=== PATIENT | male | born 1985 | race Caucasian/White ===

== ENCOUNTER 2016-07-02 12:50 | Emergency (ER) | payer OTHER ==
[~2016-07-02] VITALS: Ht 162.6 cm; Wt 57.4 kg
[2016-07-02 12:55] VITALS: Ht 162.6 cm; Wt 57.4 kg
--- NOTE | 2016-07-02 15:26 | RADRPT ---
PROCEDURE: XR left wrist. CLINICAL INDICATION: Injury TECHNIQUE: Three views are available for review. COMPARISON: No prior studies are available for comparison. FINDINGS: There is an acute vertical nondisplaced intra-articular fracture involving the anterior distal radiu s. The osseous structures are otherwise normal in mineralization, architecture and alignment. No osseo us lesions are identified. The joints are unremarkable. There is mild soft tissue swelling. IMPRESSION: Acute vertical nondisplaced intra-articular fracture involving the anterior distal radius RPTAT: HGDB .Loy Pelaez MD, MD Date Time Electronically viewed and signed by .Loy Pelaez MD, on 07/02/2016 15:25 .B/
--- NOTE | 2016-07-02 15:27 | RADRPT ---
PROCEDURE: XR left forearm. CLINICAL INDICATION: Injury TECHNIQUE: AP and lateral views of the forearm were obtained. COMPARISON: No prior studies are available for comparison. FINDINGS: There is normal mineralization. There is an acute vertical intra-articular nondisplaced fracture in volving the anterior aspect of the distal radius. The joints are unremarkable. The soft tissues are unremarkable. IMPRESSION: Acute nondisplaced vertical intra-articular fracture involving the anterior aspect of the distal rad ius RPTAT: HGDB .Loy Pelaez MD, Date Time Electronically viewed and signed by .Loy Pelaez MD, on 07/02/2016 15:27 .B/
--- NOTE | 2016-07-02 15:50 | ERD ---
ER Documentation Chief Complaint Date/Time DATE: 07/02/16 TIME: 15:48 Chief Complaint pt bib family with c/o left wrist pain s/p falling while skateboarding nelli POWELL This a 30-year-old male who presents the emergency department today complaining of left-sided wrist pain after falling off his skateboard 3 days ago. Patient denies any previous trauma to this wrist. States he smokes cigarettes and marijuana daily. Denies any fevers or chills. ROS All systems reviewed and are negative except as per history of present illness. Medications Home Meds Active Scripts Naproxen* (Naprosyn*) 500 Mg Tablet, 500 MG PO BID Y for PAIN AND/OR INFLAMMATION, #30 TAB Prov:PAUL DE LOS SANTOS PA-C 07/02/16 Tramadol HCl (Tramadol HCl) 50 Mg Tablet, 50 MG PO Q4 Y for PAIN, #20 TAB Prov:PAUL DE LOS SANTOS PA-C 07/02/16 Allergies Allergies: Coded Allergies: No Known Allergy (Unverified , 07/02/16) PMhx/Soc Medical and Surgical Hx: pt denies Medical Hx History of Surgery: Yes (RT WRIST ) Anesthesia Reaction: No Hx Neurological Disorder: No Hx Respiratory Disorders: No Hx Cardiac Disorders: No Hx Psychiatric Problems: No Hx Miscellaneous Medical Probl: No Hx Alcohol Use: Yes Hx Substance Use: Yes Hx Tobacco Use: Yes Smoking Status: Current every day smoker Physical Exam Vitals Vital Signs Date Time Temp Pulse Resp B/P Pulse Ox O2 Delivery O2 Flow Rate FiO2 07/02/16 12:55 96.7 78 18 142/92 100 Physical Exam Const: No acute distress Head: Atraumatic Eyes: Normal Conjunctiva ENT: Normal External Ears, Nose and Mouth. Neck: Full range of motion..~ No meningismus. Resp: Clear to auscultation bilaterally Cardio: Regular rate and rhythm, no murmurs Abd: Soft, non tender, non distended. Normal bowel sounds Skin: No petechiae or rashes MSK left forearm and wrist with no obvious deformity. No effusion. No ecchymosis. Tenderness palpation distal radius and scaphoid. Pain with full active range of motion at wrist. Full active range of motion elbow with no pain. Pulses 2+. Distal neurovascular intact. Neur: Awake and alert Psych: Normal Mood and Affect Results 24 hrs Patient: MARC FRANK : 1985 Age: 30 Sex: M MR #: [id number] DOS: 07/02/16 0000 Ordering MD: PAUL DE LOS SANTOS PA-C Location: [facility] Room/Bed: PROCEDURE: XR left forearm. CLINICAL INDICATION: Injury TECHNIQUE: AP and lateral views of the forearm were obtained. COMPARISON: No prior studies are available for comparison. FINDINGS: There is normal mineralization. There is an acute vertical intra-articular nondisplaced fracture involving the anterior aspect of the distal radius. The joints are unremarkable. The soft tissues are unremarkable. IMPRESSION: Acute nondisplaced vertical intra-articular fracture involving the anterior aspect of the distal radius RPTAT: HGDB .Loy Pelaez MD, Date Time Electronically viewed and signed by .Loy Pelaez MD, on 07/02/2016 15:27 .B/ CC: PAUL DE LOS SANTOS PA-C Patient: MARC FRANK : 1985 Age: 30 Sex: M MR #: [id number] DOS: 07/02/16 0000 Ordering MD: PAUL DE LOS SANTOS PA-C Location: [facility] Room/Bed: PROCEDURE: XR left wrist. CLINICAL INDICATION: Injury TECHNIQUE: Three views are available for review. COMPARISON: No prior studies are available for comparison. FINDINGS: There is an acute vertical nondisplaced intra-articular fracture involving the anterior distal radius. The osseous structures are otherwise normal in mineralization, architecture and alignment. No osseous lesions are identified. The joints are unremarkable. There is mild soft tissue swelling. IMPRESSION: Acute vertical nondisplaced intra-articular fracture involving the anterior distal radius RPTAT: HGDB .Loy Pelaez MD, MD Date Time Electronically viewed and signed by .Loy Pelaez MD, MD on 07/02/2016 15:25 .B/ CC: PAUL DE LOS SANTOS PA-C Procedures/MDM This is a 30-year-old male who presents to the emergency department today complaining of left forearm and wrist pain after falling off a skateboard 3 days ago. Given the trauma I did obtain images. Per the radiology report images of the left forearm and left wrist show an acute vertical nondisplaced intra-articular fracture involving the anterior distal radius. There is mild soft tissue swelling. Joints are otherwise unremarkable. Patient did have some scaphoid tenderness and will be placed in a volar splint with thumb spica. I have explained this to the patient about my concern about his scaphoid. I have explained him that he is to follow-up with a primary care physician for referral to orthopedics likely reimaging in 2 weeks for further evaluation of the CT scan.. Patient understood. She will also be given a sling. Patient is afebrile and otherwise well-appearing. Low suspicion for septic joint or gout. She declined pain medication here in the emergency department. He will be given a prescription for tramadol and Naprosyn. He was instructed on >3 minutes to stop smoking especially to help with bone healing. At this time the patient is stable for discharge and outpatient management. Patient should follow up with their PCP in the next 1-2 days. They may return to the emergency department sooner for any persistent or worsening of symptoms. Patient understood and agreed with the plan. Departure Diagnosis: Primary Impression: Radius fracture Encounter type: initial encounter Radius location: distal Fracture type: closed Fracture morphology: other intra-articular Laterality: left Qualified Code: S52.572A - Other closed intra-articular fracture of distal end of left radius, initial encounter Condition: Fair PAUL DE OLS SANTOS PA-C Jul 02, 2016 15:50
[2016-07-02] MEDS ORDERED: TRAM50TA2 PO (15:59)
[2016-07-02] MEDS ORDERED: NAPR-260 PO (15:59)
[2016-07-02 16:27] VITALS: BP 136/80; PULSE 78; RESP 18; TEMP 97.3
== END 2016-07-02 16:27 | disposition home or self-care (01) ==
LOC: FTE 12:50
DX: S52.572A Other intraarticular fracture of lower end of left radius, initial encounter for closed fracture (principal); F17.210 Nicotine dependence, cigarettes, uncomplicated; V00.131A Fall from skateboard, initial encounter; Y92.9 Unspecified place or not applicable
CPT/HCPCS: 29125; 73090; 73110; Z7502